=== PATIENT | female | born 1965 | race Caucasian/White ===

== ENCOUNTER → 2018-07-13 | Outpatient (CLI) | payer OTHER | LOC: MC.RAD 10:36 | DX: Z12.31 Encounter for screening mammogram for malignant neoplasm of breast (principal) ==

== ENCOUNTER → 2019-08-01 | Outpatient (CLI) | payer OTHER | LOC: MC.RAD 08:59 | DX: Z12.31 Encounter for screening mammogram for malignant neoplasm of breast (principal) ==

== ENCOUNTER → 2020-12-13 | Outpatient (CLI) | payer BC | LOC: MC.RAD 07:00 | DX: Z12.11 Encounter for screening for malignant neoplasm of colon (principal) ==

== ENCOUNTER → 2022-04-14 | Outpatient (CLI) | payer BC | LOC: MC.RAD 13:48 | DX: Z12.31 Encounter for screening mammogram for malignant neoplasm of breast (principal) ==